=== PATIENT | male | born 1990 | race Caucasian/White ===

== ENCOUNTER 2017-07-02 11:34 | Emergency (ER) | payer OTHER ==
[2017-07-02 11:48] VITALS: BP 156/71; PULSE 82; RESP 18; TEMP 97.5; O2SAT 100
[2017-07-02] MEDS ORDERED: TETANUS/DIPHTHERIA TOXOID ADULT 0.5 ML VIAL IM ONE (12:15)
--- NOTE | 2017-07-02 12:21 | PD ---
HPI Chief Complaint: Laceration/Skin Injury Time Seen by Provider: 12:07 Travel History International Travel<30 days: No Contact w/Intl Traveler<30days: No Traveled to known affect area: No History of Present Illness HPI 27-year-old male presents to the emergency room for evaluation of laceration to left forearm that occurred just prior to arrival. Patient was using a powdered metal supervisor to saw through wood when the tool slipped and cut his left forearm. Patient applied pressure and came straight to the emergency room. Unknown last tetanus. Reports moderate pain. Denies any paresthesias or loss range of motion. No other chronic medical conditions or daily medications. [facility] Social History Tobacco Use: Yes Allergies-Medications (Allergen,Severity, Reaction): Coded Allergies: No Known Allergies (Unverified , 07/02/17) Review of Systems Except as stated in HPI: all other systems reviewed are Neg Physical Exam Narrative GENERAL: Well-nourished, well-developed male in no acute distress. Afebrile. Ambulatory. SKIN: Focused skin assessment warm/dry. There is a 3 cm superficial laceration to the left anterior forearm. Nonbleeding. No neurovascular or tendon injury. HEAD: Normocephalic. EYES: No scleral icterus. No injection or drainage. NECK: Supple, trachea midline. No JVD or lymphadenopathy. CARDIOVASCULAR: Regular rate and rhythm without murmurs, gallops, or rubs. RESPIRATORY: Breath sounds equal bilaterally. No accessory muscle use. MUSCULOSKELETAL: No cyanosis, or edema. 2+ radial pulse in the left. Radial, ulnar, and median nerves intact. Full range of motion of the left hand. Strength intact. Data Data Last Documented VS Vital Signs Date Time Temp Pulse Resp B/P (MAP) Pulse Ox O2 Delivery O2 Flow Rate FiO2 07/02/17 11:48 97.5 82 18 156/71 (99) 100 Orders Orders Tetanus/Diphtheria Tox Adult (Tetanus/Di (07/02/17 12:15) Wound Care (07/02/17 12:07) Ed Discharge Order (07/02/17 12:58) [facility] Medical Decision Making Medical Screen Exam Complete: Yes Emergency Medical Condition: Yes Medical Record Reviewed: Yes Differential Diagnosis Laceration, contusion, abrasion, neurovascular injury Narrative Course 27-year-old male presents to the emergency room for evaluation of laceration to left forearm that occurred just prior to arrival. Patient was cut by a powdered metal supervisor. Physical exam reveals a 3 cm superficial laceration to the left anterior forearm. No neurovascular or tendon injury. Tetanus updated. Wound was thoroughly cleansed and repaired, see procedure note for details. Patient discharged with wound care instructions and told to follow-up with her primary care physician or return for worsening symptoms. He understands and agrees to plan. Procedures Procedure Narrative LACERATION LOCATION: Left forearm LENGTH: 3 centimeter NUMBER OF STITCHES/ALICIA: 3 alicia REPAIR: The area of the laceration was prepped with Betadine and sterilely draped. The wound was copiously irrigated and explored without evidence of foreign body, tendon injury or neurovascular injury. The wound was closed using staple gun. This was a single layer repair. A sterile dressing was applied. The patient was advised to keep the dressing clean and dry. Patient tolerated the procedure well. Diagnosis Primary Impression: Laceration of arm Qualified Codes: S41.112A - Laceration without foreign body of left upper arm , initial encounter Referrals: Primary Care Physician Additional Instructions: Rest and drink fluids. Keep wound clean and dry. Apply triple antibiotic ointment daily. Return in 10 days to have sutures removed. Follow-up with a primary care physician. Return to the emergency room for worsening symptoms. Med/Other Pt SpecificInfo: Prescription(s) given Disposition: 01 DISCHARGE HOME Condition: Stable Lo Guadalupe Jul 02, 2017 12:21
== END 2017-07-02 13:25 | disposition home or self-care (01) ==
LOC: NEPK 11:34
DX: S51.812A Laceration without foreign body of left forearm, initial encounter (principal); W31.2XXA Contact with powered woodworking and forming machines, initial encounter; Z23 Encounter for immunization
CPT/HCPCS: 12002; 90471; 90714